=== PATIENT | female | born 1995 | race Caucasian/White ===

== ENCOUNTER 2020-11-20 17:23 | Inpatient (IN) | payer OTHER ==
[~2020-11-20] VITALS: Ht 165.1 cm; Wt 72.5 kg
[2020-11-20] MEDS ORDERED: ABIL30TA4 PO ×2 (17:53→20:45)
[2020-11-20 18:19] LABS: HEMATOCRIT 38.9 % (36.0-47.0); HEMOGLOBIN 12.5 g/dl (12.0-15.5); MEAN CORPUSCULAR HEMOGLOBIN 28.9 pg (27.0-33.0); MEAN CORPUSCULAR HGB CONC 32.1 g/dl (32.0-36.5); PLATELET COUNT, AUTOMATED 315 10^3/uL (150-450); RED BLOOD COUNT 4.32 10^6/uL (4.00-5.40); WHITE BLOOD COUNT 9.3 10^3/uL (4.0-10.0)
[2020-11-20 18:42] LABS: AMPHETAMINES LEVEL URINE POSITIVE (NEGATIVE); BARBITURATES URINE NEGATIVE (NEGATIVE); BENZODIAZEPINES URINE NEGATIVE (NEGATIVE); CANNABINOIDS URINE NEGATIVE (NEGATIVE); COCAINE METABOLITE URINE NEGATIVE (NEGATIVE); HCG, SERUM QUALITATIVE NEGATIVE (NEGATIVE); METHADONE URINE NEGATIVE (NEGATIVE); OPIATES URINE NEGATIVE (NEGATIVE); PHENCYCLIDINE URINE NEGATIVE (NEGATIVE)
[2020-11-20 18:53] LABS: ACETAMINOPHEN LEVEL < 2.0 UG/ML (10.0-30.0); ALBUMIN 3.6 GM/DL (3.2-5.2); ALT/SGPT 33 U/L (12-78); BILIRUBIN,DIRECT 0.1 MG/DL (0.0-0.2); BILIRUBIN,TOTAL 0.5 MG/DL (0.2-1.0); BLOOD UREA NITROGEN 11 MG/DL (7-18); CALCIUM LEVEL 9.3 MG/DL (8.5-10.1); CARBON DIOXIDE LEVEL 32 MEQ/L (21-32); CHLORIDE LEVEL 110 MEQ/L (98-107); CREATININE FOR GFR 0.54 MG/DL (0.55-1.30); ETHYL ALCOHOL (ETHANOL) < 0.003 % (0.000-0.010); GLOMERULAR FILTRATION RATE > 60.0 (>60); GLUCOSE, FASTING 68 MG/DL (70-100); POTASSIUM SERUM 4.5 MEQ/L (3.5-5.1); SALICYLATE LEVEL < 1.7 MG/DL (5.0-30.0); SODIUM LEVEL 142 MEQ/L (136-145); THYROID STIMULATING HORMONE 0.617 uIU/ML (0.358-3.740); TOTAL PROTEIN 7.2 GM/DL (6.4-8.2)
[2020-11-20 19:02] LABS: RSV AMPLIFICATION NEGATIVE (NEGATIVE)
[2020-11-20] MEDS ORDERED: OLANZapine ORAL DISINTEGRATING TAB 5MG PO PRN (20:05)
[2020-11-20] MEDS ORDERED: MAALOX 30 ML SUSP *UDC PO PRN (20:05)
[2020-11-20] MEDS ORDERED: MOM 30ML SUSPENSION UDC PO PRN (20:05)
[2020-11-20] MEDS ORDERED: ACETAMINOPHEN TAB 650MG DOSE (2X325MG) PO PRN (20:05)
[2020-11-20] MEDS ORDERED: AUGM875T28 PO (20:45)
[2020-11-20] MEDS ORDERED: HOME MED LIST COMPLETE! XX SCH (20:45)
[2020-11-20 21:08] VITALS: BP 136/75
[2020-11-21 06:19] VITALS: BP 109/71
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
[2020-11-21 16:21] VITALS: BP 121/72
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
[2020-11-21] MEDS: traZODone 50 MG TAB PO PRN (20:51)
[2020-11-21] MEDS: FLUCONAZOLE 100 MG TAB PO SCH (21:47)
[2020-11-21] MEDS: ARIPiprazole 15 MG TAB (AbiLIFY) PO SCH (21:48)
[2020-11-22 06:39] VITALS: BP 126/64
[2020-11-22] MEDS: FLUCONAZOLE 100 MG TAB PO SCH (09:20)
[2020-11-22] MEDS ORDERED: SERTRALINE HCL 50 MG TAB PO ONE (11:00)
--- NOTE | 2020-11-22 12:51 | MHIPNPDOC ---
[facility] Progress Note Progress Note DATE OF SERVICE: 11/22/20 HISTORY: Patient is a history of polysubstance abuse including heroin and meth use, has been sober for 3 days. Patient was brought here by mother from [place]. Reported being suicidal with plan to OD on heroin pills and was admitted on a 9.39 legal status. Interval: Reports I am struggling but better, denies auditory visual hallucinations, was seen lying in bed, did not endorse excessive autonomic symptoms including sweaty hyperactivity, high anxiety, but reports continues to have suicidal ideation in context of low mood and fear of addiction agrees to starting an antidepressant for her mood symptoms, reports that she tried sertraline in the past with some benefit. Understands may be synergistic with her Abilify. Plan to further discuss treatment options for maintaining abstinence from substances. VITAL SIGNS: See below. NEW TEST RESULTS: none CURRENT MEDICATIONS: See below. MENTAL STATUS EXAMINATION: Patient is a 24-year old female, who is lying in bed, somnolent but alert to interview, shaved head on the side with face tattoo, dressed in hospital clothing. Speech: Is slowed. Language skills are intact. Thought processes including: Linear and. Thought content: Continues to endorse vague suicidal thoughts, no current intent or plan reported. Abstract reasoning, and computation: Intact. Description of associations: Intact. Description of abnormal or psychotic thoughts: Strange ideas , denies hallucinations or clear delusions. Judgment: Poor. Insight: Poor, improving. Orientation: X4. Recent and remote memory: Intact. Attention span and concentration: Fair. Language: Belizean. Fund of knowledge: Average. Mood: Depressed. Affect: Dysthymic, flat, congruent. DIAGNOSES: 1. 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 2. Heroin use disorder, severe 3. Amphetamine use disorder, severe ASSESSMENT: Patient continues to be somnolent and withdrawn, no signs of hyperarousal, acute agitation, severe autonomic stimulation. Reports chronic depression as well as substance use which needs further evaluation. Should be considered for possible opiate maintenance treatment if agreeable, as no longer has acute opiate withdrawal symptoms present, has not used in 4 days approximately. Continues to have suicidal ideation warranting further hospital admission. MANAGEMENT PLAN: Continue Abilify, start sertraline 50 mg p.o. for synergistic improvement in mood, has reported previous benefit on this medication without allergy, risks/side effects were discussed with patient. Lipid panel ordered to establish baseline metabolic profile, fasting glucose ordered in the ED was not elevated. TIME SPENT: 30 minutes. Vital Signs Vital Signs Date Time Temp Pulse Resp B/P (MAP) Pulse Ox O2 Delivery O2 Flow Rate FiO2 11/22/20 06:39 98.0 90 20 126/64 (84) 98 Room Air Current Medications Current Medications Medications (Trade) Dose Ordered Sig/Kristen Route PRN Reason Start Time Stop Time Status Last Admin Dose Admin Acetaminophen (Tylenol Tab) 650 mg Q6HP PRN PO HEADACHE or MILD DISCOMFORT 11/20/20 20:05 Al Hydrox/Mg Hydrox/Simethicone (Mylanta) 30 ml Q4HP PRN PO HEARTBURN/INDIGESTION 11/20/20 20:05 Aripiprazole (AbiLIFY) 30 mg QHS PO 11/21/20 21:00 11/21/20 21:48 Aripiprazole (AbiLIFY) 30 mg QHS PO 11/22/20 21:00 11/21/20 21:39 DC Fluconazole (Diflucan Tablet) 100 mg DAILY PO 11/21/20 18:55 11/23/20 20:00 11/22/20 09:20 Home Med (Home Med List Complete!) ASDIRECTED XX 11/20/20 20:45 11/20/20 20:47 DC Magnesium Hydroxide (Milk Of Magnesia) 30 ml DAILYPRN PRN PO CONSTIPATION 11/20/20 20:05 Nicotine (Nicoderm Cq 21mg) 1 patch DAILY PRN TD NICOTINE WITHDRAWAL 11/20/20 20:05 Olanzapine (ZyPREXA ZYDIS) 5 mg Q4HP PRN PO AGITATION 11/20/20 20:05 11/21/20 20:51 Trazodone HCl (Desyrel) 50 mg QHSP PRN PO INSOMNIA 11/20/20 20:05 11/21/20 20:51 Allergies Coded Allergies: No Known Allergies (Unverified , 11/20/20) MITESH WALTER MD Nov 22, 2020 12:51
[2020-11-22 14:25] LABS: CHOLESTEROL RISK RATIO 2.933 (<5)
[2020-11-22 16:18] VITALS: BP 130/78
[2020-11-22] MEDS ORDERED: ARIPiprazole 15 MG TAB (AbiLIFY) PO SCH (21:00)
[2020-11-22] MEDS: ARIPiprazole 15 MG TAB (AbiLIFY) PO SCH (22:17)
[2020-11-22] MEDS: traZODone 50 MG TAB PO PRN (22:17)
[2020-11-23 06:59] VITALS: BP 139/76
[2020-11-23] MEDS: FLUCONAZOLE 100 MG TAB PO SCH (09:15)
[2020-11-23] MEDS: SERTRALINE HCL 50 MG TAB PO SCH (09:15)
[2020-11-23] MEDS: NALTREXONE 50 MG TAB PO SCH (13:09)
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
[2020-11-23 18:15] VITALS: BP 122/74
[2020-11-23] MEDS: ARIPiprazole 15 MG TAB (AbiLIFY) PO SCH (20:40)
[2020-11-23] MEDS: traZODone 50 MG TAB PO PRN (20:40)
[2020-11-24 06:48] VITALS: BP 124/68
[2020-11-24] MEDS: NALTREXONE 50 MG TAB PO SCH (09:39)
[2020-11-24] MEDS: SERTRALINE HCL 50 MG TAB PO SCH (09:39)
--- NOTE | 2020-11-24 14:02 | MHIPNPDOC ---
[facility] Progress Note Progress Note DATE OF SERVICE: 11/24/20 HISTORY: Patient is a history of polysubstance abuse including heroin and meth use, has been sober for 3 days. Patient was brought here by mother from [place]. Reported being suicidal with plan to OD on heroin pills and was admitted on a 9.39 legal status. Interval: Charts reviewed, states she continues to do well, reports mood continues to improve, despite appearing somnolent and spending most of the time in her room. Reports tolerating medications including naltrexone without any acute side effects, feels mood continues to improve with fewer vague suicidal ideations. States she is hopeful to leave next week and plans to stay in the area with her mother instead of returning to [place]. Understands will need to reach out with her mother to establish collateral and safety before she leaves. VITAL SIGNS: See below. NEW TEST RESULTS: Lipid panel within normal limits CURRENT MEDICATIONS: See below. MENTAL STATUS EXAMINATION: Patient is a 24-year old female, who is lying in bed, somnolent but alert to interview, shaved head on the side with face tattoo, dressed in hospital clothing. Speech: Continues to be significantly slowed. Language skills are intact. Thought processes including: Linear and. Thought content: Decreased frequency of vague suicidal thoughts. Abstract reasoning, and computation: Intact. Description of associations: Intact. Description of abnormal or psychotic thoughts: Strange ideas , denies hallucinations or clear delusions. Judgment: Poor. Insight: Poor, improving. Orientation: X4. Recent and remote memory: Intact. Attention span and concentration: Fair. Language: Czech. Fund of knowledge: Average. Mood: "Pretty okay action" affect: Mildly dysthymic, blunted, congruent. DIAGNOSES: 1. Persistent depressive disorder. 2. Heroin use disorder, severe, also has affect on mood. 3. Amphetamine use disorder, severe ASSESSMENT: Continues to improve with regards to mood, fewer suicidal thoughts beginning to consult for safety. Plans to stay in the area with her mom for support due to risk for opioid cravings. Understands that her opioid use is having a significant effect on her mental health and overall health and w ellbeing. Continue with motivational interviewing as she is contemplative regarding discontinuing opioids. Is encouraged for long-term treatment including [facility]. Outpatient substance abuse program. MANAGEMENT PLAN: Continue medications, no changes for now. Possible discharge on Friday if continues to improve over the weekend without any suicidal ideation, intent or plan and establishment of collateral from home for safety. TIME SPENT: 30 minutes. Vital Signs Vital Signs Date Time Temp Pulse Resp B/P (MAP) Pulse Ox O2 Delivery O2 Flow Rate FiO2 11/24/20 06:48 98.8 90 16 124/68 (86) 98 Room Air Current Medications Current Medications Medications (Trade) Dose Ordered Sig/Kristen Route PRN Reason Start Time Stop Time Status Last Admin Dose Admin Acetaminophen (Tylenol Tab) 650 mg Q6HP PRN PO HEADACHE or MILD DISCOMFORT 11/20/20 20:05 Al Hydrox/Mg Hydrox/Simethicone (Mylanta) 30 ml Q4HP PRN PO HEARTBURN/INDIGESTION 11/20/20 20:05 Aripiprazole (AbiLIFY) 30 mg QHS PO 11/21/20 21:00 11/23/20 20:40 Aripiprazole (AbiLIFY) 30 mg QHS PO 11/22/20 21:00 11/21/20 21:39 DC Fluconazole (Diflucan Tablet) 100 mg DAILY PO 11/21/20 18:55 11/23/20 20:00 DC 11/23/20 09:15 Home Med (Home Med List Complete!) ASDIRECTED XX 11/20/20 20:45 11/20/20 20:47 DC Magnesium Hydroxide (Milk Of Magnesia) 30 ml DAILYPRN PRN PO CONSTIPATION 11/20/20 20:05 Naltrexone HCl (Revia) 50 mg DAILY PO 11/23/20 13:00 11/24/20 09:39 Nicotine (Nicoderm Cq 21mg) 1 patch DAILY PRN TD NICOTINE WITHDRAWAL 11/20/20 20:05 Olanzapine (ZyPREXA ZYDIS) 5 mg Q4HP PRN PO AGITATION 11/20/20 20:05 11/21/20 20:51 Sertraline HCl (Zoloft) 50 mg DAILY PO 11/23/20 09:00 11/24/20 09:39 Trazodone HCl (Desyrel) 50 mg QHSP PRN PO INSOMNIA 11/20/20 20:05 11/23/20 20:40 Allergies Coded Allergies: No Known Allergies (Unverified , 11/20/20) MITESH WALTER MD Nov 24, 2020 14:02
[2020-11-24 16:47] VITALS: BP 118/57
[2020-11-24] MEDS: traZODone 50 MG TAB PO PRN (21:02)
[2020-11-24] MEDS: ARIPiprazole 15 MG TAB (AbiLIFY) PO SCH (21:02)
[2020-11-25 06:18] VITALS: BP 146/92
[2020-11-25] MEDS: NALTREXONE 50 MG TAB PO SCH (09:47)
[2020-11-25] MEDS: SERTRALINE HCL 50 MG TAB PO SCH (09:47)
[2020-11-25] MEDS: NICOTINE 21MG/24HR 1 EA TRANSDERMAL TD PRN (09:48)
[2020-11-25 16:13] VITALS: BP 122/88
[2020-11-25] MEDS: DOXYCYCLINE HYCLATE 100MG TABLET PO SCH (21:20)
[2020-11-25] MEDS: traZODone 50 MG TAB PO PRN (21:20)
[2020-11-25] MEDS: ARIPiprazole 15 MG TAB (AbiLIFY) PO SCH (21:20)
[2020-11-26 06:58] VITALS: BP 124/56
[2020-11-26] MEDS: NALTREXONE 50 MG TAB PO SCH (08:31)
[2020-11-26] MEDS: DOXYCYCLINE HYCLATE 100MG TABLET PO SCH ×2 (08:31→22:01)
[2020-11-26] MEDS: SERTRALINE HCL 50 MG TAB PO SCH (08:31)
[2020-11-26] MEDS: NICOTINE 21MG/24HR 1 EA TRANSDERMAL TD PRN (15:29)
[2020-11-26 16:27] VITALS: BP 129/73
[2020-11-26] MEDS: ARIPiprazole 15 MG TAB (AbiLIFY) PO SCH (22:01)
[2020-11-27 07:08] VITALS: BP 117/63
[2020-11-27] MEDS: NALTREXONE 50 MG TAB PO SCH (09:45)
[2020-11-27] MEDS: DOXYCYCLINE HYCLATE 100MG TABLET PO SCH (09:45)
[2020-11-27] MEDS: SERTRALINE HCL 50 MG TAB PO SCH (09:45)
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
[2020-11-27] MEDS ORDERED: SERT50TA29 PO (11:45)
[2020-11-27] MEDS ORDERED: DOXY100T PO (11:45)
[2020-11-27] MEDS ORDERED: NICO21PAT TD (11:45)
[2020-11-27] MEDS ORDERED: ABIL30TA4 PO (11:45)
[2020-11-27] MEDS ORDERED: TRAZ-252 PO (11:45)
[2020-11-27] MEDS ORDERED: NALT50TA4 PO (11:45)
--- NOTE | 2020-11-27 15:08 | MHDSPDOC ---
[facility] Discharge Summary Discharge Summary DATE OF ADMISSION: Nov 20, 2020 at 20:03 DATE OF DISCHARGE: Nov 27, 2020 at 13:59 Discharge diagnoses: 1. Persistent depressive disorder. 2. Heroin use disorder, severe, also has affect on mood. 3. Amphetamine use disorder, severe 4. Left lower leg infection supplement with antibiotics Reason for admission:Patient is a history of polysubstance abuse including heroin and meth use, has been sober for 3 days. Patient was brought here by mother from [place]. Reported being suicidal with plan to OD on heroin pills and was admitted on a 9.39 legal status. Vital signs: See below Consultants involved: See medical H&P by hospitalist Treatment and progress on the unit: Patient was admitted to the [facility] 9.39 legal status and was afforded the following treatment modalities: 1. Individual therapy 2. Group therapy 3. Medication management 4. Milieu therapy 5. Safe environment Hospital course: Patient was admitted to the [facility] on a 9.39 legal status. Was medically cleared prior to coming up to the [facility]. Patient reported some withdrawal symptoms initially from opioids including increased anxiety, yawning, was started on medications including Abilify which was titrated up to 30 mg for mood, impulsivity and an antidepressant Zoloft as she reports chronic depression, anhedonia low mood with low energy even during times when not using opioids. Also was started on naltrexone 50 mg for opioid cravings, refused other treatments. Initially endorsed some fleeting suicidal ideation which improved day-to-day, attending groups. Reported tolerated meds without side effects, has been made aware of common and rare side effects including but not limited to EPS, NMS, cardiac effects, metabolic effects. Patient found medications beneficial and tolerated them well. Prior to discharge denies low mood mood, anxiety and intrusive thoughts which improved with treatment. Patient attended groups daily during stay. Patient symptoms improved with treatment. On day of discharge patient denied depression, anxiety, insomnia, suicidal or homicidal ideations intent or plan, horton llucinations, delusions. Patient was discharged home with follow-up. Patient felt safe for discharge. Was offered continued stay involuntary admission but refused. Discharge assessment: On today's interview patient is alert and oriented, dressed appropriately. Hygiene and grooming is well-kept. Smiles on approach and is pleasant and engaged on interview. Denies depression and anxiety. Denies suicidal homicidal ideation, intent or planning. Denies and is not observed with ravi or psychotic symptoms of delusions, hallucinations, bizarre thinking, obsessions, paranoia, ruminations, illogical thoughts, flight of ideas or having poor insight or judgment. Patient has normal mentation, declines further hospitalization of voluntary status and meets criteria for discharge today, patient encouraged to return the hospital if symptoms worsen or change and encouraged to call unit if they feel they need provider's questions to be answered or help with medications or care. Patient endorsed that she wants to go to get outpatient treatment for her opioid addiction, collaborated with mother that she can stay with her and be brought to [facility], outpatient treatment at [facility] for addictions and mental health. Mental status: Patient is a 24-year old female, who is sitting in bed, alert to interview in no acute distress, shaved head on the side with face tattoo, dressed in hospital clothing, improved eye contact Speech: Somewhat slowed, but improved from previous days, spontaneous Language skills are intact. Thought processes including: Linear and. Thought content: Denies suicidal ideation, intent, plan denies homicidal ideation, intent, plan. Description of associations: Intact. Description of abnormal or psychotic thoughts: Denies Judgment: Poor. Insight: Poor, improving. Orientation: X4. Recent and remote memory: Intact. Attention span and concentration: Fair. Language: Eritrean. Fund of knowledge: Average. Mood: "Good" affect: Euthymic, mild constriction, congruent. Medications on discharge: see medication reconciliation: Follow-up appointments:Follow Up Care Education Label * Chemical Dependency Appt1 * Chemical Dependency [facility] * Address of Clinic or Practice [address] [place] [address] * * Additional information Walk in appointments Friday through Friday from 8am to 4pm Follow Up Care Education Label * Chemical Dependency Appt2 * Chemical Dependency [facility] * Address of Clinic or Practice [address] [place] [address] * * Additional information Walk in hours Friday through Friday from 730am to 1230pm Follow Up Care Education Label * Mental Health Appt 1 * Mental Health [facility] * Address of Clinic or Practice [address] [place] [address] * * Additional information Walk in hours Friday through Friday from 730am to 1230pm CSSRS on discharge: Wish to be : No nonspecific active suicidal thoughts: No lifetime attempts: 0 interrupted attempts: 0 aborted attempts: 0 preparatory acts or behavior: None Taking into consideration safety state, status, modifiable, non-modifiable risk factors patient is at low risk on discharge for suicide according to [place] suicide evaluation. total time: 30 minutes ETOH/Disorder Med Rx ETOH/DRUG DISORDER RX: Offrd @ d/c & pt refused Vital Signs/I&Os Vital Signs Date Time Temp Pulse Resp B/P (MAP) Pulse Ox O2 Delivery O2 Flow Rate FiO2 11/27/20 07:08 97.9 88 20 117/63 (81) 99 Room Air Medications Scheduled Amoxicillin/Potassium Clav (Augmentin 875-125 Tablet) 1 Each Tablet, 875 MG PO BID, (Reported) Aripiprazole (Abilify) 30 Mg Tablet, 30 MG PO QHS for depression, #7 Doxycycline Hyclate (Doxycycline Hyclate) 100 Mg Tablet, 100 MG PO BID for infection, #7 Naltrexone HCl (Naltrexone HCl) 50 Mg Tablet, 50 MG PO DAILY for opioid cravings, #7 Sertraline HCl (Sertraline HCl) 50 Mg Tablet, 50 MG PO DAILY for depression, #7 Scheduled PRN Nicotine (Nicotine Patch) 21 Mg Patch.td24, 1 PATCH TD DAILY PRN for NICOTINE WITHDRAWAL, #7 Trazodone HCl (Trazodone HCl) 50 Mg Tablet, 50 MG PO QHSP PRN for INSOMNIA, #7 Allergies Coded Allergies: No Known Allergies (Unverified , 11/20/20) MITESH WALTER MD Nov 27, 2020 15:08
== END 2020-11-27 13:59 | disposition home or self-care (01) | DRG 754 ==
LOC: M ED 17:23 → M ED INP 20:03 → M PSY 21:06
PROVIDERS: ADMIT Psychiatry & Neurology Child & Adolescent Psychiatry; ATTEND Student in an Organized Health Care Education/Training Program
DX: F34.1 Dysthymic disorder (principal); F11.24 Opioid dependence with opioid-induced mood disorder; R45.851 Suicidal ideations; F15.20 Other stimulant dependence, uncomplicated; Z20.822 Contact with and (suspected) exposure to COVID-19; Z79.899 Other long term (current) drug therapy; B37.3 Candidiasis of vulva and vagina; L08.9 Local infection of the skin and subcutaneous tissue, unspecified